=== PATIENT | female | born 1990 | race Two or more races ===

== ENCOUNTER 2024-12-25 09:41 | Emergency (ER) | payer MEDICAID, OTHER ==
[~2024-12-25] VITALS: Ht 170.2 cm; Wt 80.3 kg
--- NOTE | 2024-12-25 10:37 | ED.PDOC ---
History of Present Illness HPI Comments 34-year-old female came to the ER stating that she has been having abdominal pain for the past three months. She did have umbilical hernia repair six years ago. She feels that hernia as bulging out in the umbilical region for the past three months progressively getting worse. Abdominal pain associated with nausea. Pain is 7/10 in his no radiation of the abdominal pain. States that she has been having regular bowel movements. Denies any other symptoms. 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 History Social History Smoker: Non-Smoker Alcohol: Denies ETOH Use Drugs: Denies Drug Use Constitutional: denies: chills, diaphoresis, fatigue, fever, malaise, sweats, weakness, others EENTM: denies: blurred vision, double vision, ear bleeding, ear discharge, ear drainage, ear pain, ear ringing, eye pain, eye redness, hearing loss, mouth pain, mouth swelling, nasal discharge, nose bleeding, nose congestion, nose pain, photophobia, tearing, throat pain, throat swelling, voice changes, others Respiratory: denies: cough, hemoptysis, orthopnea, SOB at rest, shortness of breath, SOB with excertion, stridor, wheezing, others Cardiovascular: denies: chest pain, dizzy spells, diaphoresis, Dyspnea on exertion, edema, irregular heart beat, left arm pain, lightheadedness, palp itations, PND, syncope, others Gastrointestinal: reports: abdominal pain; denies: abdomen distended, blood streaked bowels, constipated, diarrhea, dysphagia, difficulty swallowing, hematemesis, melena, nausea, poor appetite, poor fluid intake, rectal bleeding, rectal pain, vomiting, others Genitourinary: denies: abnormal vagina bleeding, burning, dyspareunia, dysuria, flank pain, frequency, hematuria, incontinence, pain, , vagina disch arge, urgency, others Neurological: denies: dizziness, fainting, headache, left sided numbness, left sided weakness, numbness, paresthesia, pre-existing deficit, right sided numbness, right sided weakness, seizure, speech problems, tingling, tremors, weakness, others Musculoskeletal: denies: back pain, gout, joint pain, joint swelling, muscle pain, muscle stiffness, neck pain, others Integumetry: denies: bruises, change in color, change in hair/nails, dryness, laceration, lesions, lumps, rash, wounds, others Allergic/Immunocompromised: denies: Difficulty Healing, Frequent Infections, Hives, Itching, others Hematologic/Lymphatic: denies: anemia, blood clots, easy bleeding, easy bruising, swollen glands, others Endocrine: denies: excessive hunger, excessive sweating, excessive thirst, excessive urination, flushing, intolerance to cold, intolerance to heat, unexplained weight gain, unexplained weight loss, others Psychiatric: denies: anxiety, bipolar disorder, depression, hopeless, panic disorder, schizophrenia, sleepless, suicidal, others Physical Exam General Appearance: Moderate Distress HEENT: Normal ENT Inspection, Pharynx Normal, TMs Normal Neck: Full Range of Motion, Non-Tender, Normal, Normal Inspection Respiratory: Chest Non-Tender, Lungs Clear, No Accessory Muscle Use, No Respiratory Distress, Normal Breath Sounds Cardiovascular: No Edema, No JVD, No Murmur, No Gallop, Normal Peripheral Pulses, Regular Rate/Rhythm Breast Exam: Deferred Gastrointestinal: No Organomegaly, Non Tender, No Pulsatile Mass, Normal Bowel Sounds, Soft Genitalia: Deferred Pelvic: Deferred Rectal: Deferred Extremities: No calf tenderness, Normal capillary refill, Normal inspection, Normal range of motion, Non-tender, No pedal edema Musculoskeletal : Apperance: Normal Neurologic: Alert, blueprint reproducer II-XII nml as Tested, No Motor Deficits, Normal Affect, Normal Mood, No Sensory Deficits Cerebellar Function: Normal Reflexes: Normal Skin: Dry, Normal Color, Warm Peripheral Pulses: 3+ Radial (R), 3+ Radial (L) Lymphatic: No Adenopathy Was a procedure done? Was a procedure done?: No Differential Dx Considerations may include: Hernia Electrolyte imbalance X-Ray, Labs, Meds, VS Vital Signs Date Time Temp Pulse Resp B/P (MAP) Pulse Ox O2 Delivery O2 Flow Rate FiO2 12/25/24 09:45 98.5 64 15 115/71 98 98.5 Patient alert. Complaining of abdominal pain. Vitals stable. Answering questions. Abdomen is soft nontender. Ambulating without difficulty. No acute process. CT scan of the abdomen reviewed does not show any acute process. Small umbilical hernia Nonobstructing kidney stone. Was told to drink plenty of fluids. Explained to the patient. Was told to follow up with her primary care physician. Was told to come back if there is any problem. [place] [id number] Ph: [phone] DIAGNOSTIC IMAGING Diagnostic Imaging Report : [id number] Signed PATIENT: KATHLEEN TOMAS ACCT: [id number] UNIT: [id number] : 1990 LOC: ER ROOM / BED: / AGE / SEX: 34 / F ADM STATUS: REG ER SERVICE 1033 ORDERING PHYSICIAN: TUYET THOMAS MD PROCEDURE(s): ABPL - CT AB PEL WO CON-NO ORAL OR IV REASON: hernia ORDER NUMBER(s): [id number], ACCESSION NUMBER(s): [id number] EXAM: CT CT AB PEL WO CON-NO ORAL OR IV HISTORY: hernia COMPARISON: None TECHNIQUE: Helical CT images of the abdomen and pelvis were performed without IV contrast. Sagittal and coronal reformatted images were obtained. This CT exam was performed using one or more of the following dose reduction techniques: Automated exposure control, adjustment of the mA and/or kv according to patient size, or the use of iterative reconstruction techniques. Radiation Dose: Abdomen/Pelvis: CTDIvol 12.92 mGy, DLP 713.08 mGy*cm. FINDINGS: CT abdomen: The lung bases are clear. The heart is not enlarged. The liver is enlarged up to 20 cm longitudinal, and the left lobe is elongated, extending to the left abdominal wall. There are punctate nonobstructing bilateral renal calculi. The noncontrast spleen, gallbladder, pancreas, and adrenal glands are unremarkable. No abdominal aortic aneurysm. There is a small fatty umbilical hernia. No other evidence of abdominal wall hernia. CT pelvis: No abnormal bowel dilatation, free air, or free fluid. The appendix is mildly dilated up to 7.5 mm, without periappendiceal fat stranding. IUD is present in the uterus and appears appropriately positioned. The noncontrast urinary bladder is unremarkable. No ventral pelvic wall or inguinal hernias are identified here. There is mild lower lumbar degenerative disc disease. IMPRESSION: 1. Hepatomegaly. 2. Small fatty umbilical hernia. No other evidence of ventral abdominal wall, ventral pelvic wall, or inguinal hernia. 3. Nonobstructing bilateral nephrolithiasis. 4. IUD appears appropriately positioned in the endometrial cavity. 5. No evidence of bowel obstruction, acute appendicitis, or other acute process in the abdomen or pelvis. ATED BY: NIVIA MURDOCK MD DICTATED DATE/TIME: 12/25/24 111 SIGNED BY: NIVIA MURDOCK MD SIGNED DATE/TIME: 12/25/241111 CC: Time of 1ST Reevaluation: 10:35 Reevaluation 1ST: Unchanged Patient Education/Counseling: Diagnosis, Treatment, Prognosis, Need For Follow Up Family Education/Counseling: No Family Present SEPSIS Sepsis Screen Date sepsis recognized/suspect: Dec 25, 2024 Time Sepsis recognized/suspect: 944 Recent Procedure: No On Antibiotic Therapy: No Respiratory Rate >20: No Heart Rate >90: No Temp<36 C (96.8 F) or >38.3 C: No SBP <90 or MAP <65 mmHG: No New Acute Mental Status Change: No Is the patient on CPAP, BIPAP,: No Physician Orders Ct Ab Pel Wo Con-No Oral Or Iv (12/25/24 10:33) Urinalysis (12/25/24 10:33) Vital Signs Date Time Temp Pulse Resp B/P (MAP) Pulse Ox O2 Delivery O2 Flow Rate FiO2 12/25/24 09:45 98.5 64 15 115/71 98 98.5 Departure 1 Departure Time of Disposition: 10:36 Impression: Primary Impression: Umbilical hernia Qualified Codes: K42.9 - Umbilical hernia without obstruction or gangrene Additional Impression: Kidney stone Disposition: 01 HOME / SELF CARE / HOMELESS Condition: Good Discharged With: Self Critical Care Note Critical Care Time?: No Stability Stability form required: No Heart Score Heart Score: Heart Score Response (Comments) Value History N/A 0 EKG N/A 0 Age N/A 0 Risk Factors N/A 0 Troponin N/A 0 Total 0 I personally scribed for TUYET THOMAS MD ([email or web address]) on 12/25/24 at 12:33. Electronically submitted by Rina Fletcher [email or web address]). TUYET THOMAS MD Dec 25, 2024 10:36
--- NOTE | 2024-12-25 11:14 | DVH ---
EXAM: CT CT AB PEL WO CON-NO ORAL OR IV HISTORY: hernia COMPARISON: None TECHNIQUE: Helical CT images of the abdomen and pelvis were performed without IV contrast. Sagittal a nd coronal reformatted images were obtained. This CT exam was performed using one or more of the foll owing dose reduction techniques: Automated exposure control, adjustment of the mA and/or kv according to patient size, or the use of iterative reconstruction techniques. Radiation Dose: Abdomen/Pelvis: CTDIvol 12.92 mGy, DLP 713.08 mGy*cm. FINDINGS: CT abdomen: The lung bases are clear. The heart is not enlarged. The liver is enlarged up to 20 cm lo ngitudinal, and the left lobe is elongated, extending to the left abdominal wall. There are punctate nonobstructing bilateral renal calculi. The noncontrast spleen, gallbladder, pancreas, and adrenal gl ands are unremarkable. No abdominal aortic aneurysm. There is a small fatty umbilical hernia. No othe r evidence of abdominal wall hernia. CT pelvis: No abnormal bowel dilatation, free air, or free fluid. The appendix is mildly dilated up t o 7.5 mm, without periappendiceal fat stranding. IUD is present in the uterus and appears appropriat carrie positioned. The noncontrast urinary bladder is unremarkable. No ventral pelvic wall or inguinal hernias are identified here. There is mild lower lumbar degenerative disc disease. IMPRESSION: 1. Hepatomegaly. 2. Small fatty umbilical hernia. No other evidence of ventral abdominal wall, ventral pelvic wall, or inguinal hernia. 3. Nonobstructing bilateral nephrolithiasis. 4. IUD appears appropriately positioned in the endometrial cavity. 5. No evidence of bowel obstruction, acute appendicitis, or other acute process in the abdomen or pel vis.
[2024-12-25 13:20] LABS: Urine Protein, UAD Negative (Negative)
[2024-12-25 13:40] VITALS: BP 128/80; PULSE 60; RESP 16; TEMP 98.1; O2SAT 98
== END 2024-12-25 13:30 | disposition home or self-care (01) ==
LOC: ER 09:41
DX: K42.9 Umbilical hernia without obstruction or gangrene (principal); N20.0 Calculus of kidney; Z98.890 Other specified postprocedural states
CPT/HCPCS: 74176; 81001

== ENCOUNTER 2025-04-14 16:11 | Emergency (ER) | payer MEDICAID, OTHER ==
[~2025-04-14] VITALS: Ht 170.2 cm; Wt 86.3 kg
[2025-04-14 16:19] VITALS: BP 100/68; PULSE 65; RESP 16; TEMP 97.8; O2SAT 98
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
[2025-04-14] MEDS ORDERED: HYDROcodone-ACET 5/325MG TAB PO ONE (19:15)
== END 2025-04-14 20:50 | disposition home or self-care (01) ==
LOC: ER 16:11
DX: T14.8XXA Other injury of unspecified body region, initial encounter (principal); Z98.890 Other specified postprocedural states; V89.2XXA Person injured in unspecified motor-vehicle accident, traffic, initial encounter; Y93.89 Activity, other specified; Y92.488 Other paved roadways as the place of occurrence of the external cause; Y99.8 Other external cause status
CPT/HCPCS: 72040